=== PATIENT | male | born 1990 | race Caucasian/White ===

== ENCOUNTER 2017-10-28 10:48 | Emergency (ER) | payer OTHER | END 2017-10-28 12:00 | disposition home or self-care (01) | LOC: ER 12:00 | DX: J32.1 Chronic frontal sinusitis (principal); J32.0 Chronic maxillary sinusitis | CPT/HCPCS: 99283 ==

== ENCOUNTER 2019-10-24 03:08 | Emergency (ER) | payer OTHER ==
[~2019-10-24] VITALS: Ht 188 cm; Wt 108.9 kg
[2019-10-24 03:13] VITALS: BP 143/90
[2019-10-24] MEDS ORDERED: TRAM50TA PO (03:53)
[2019-10-24] MEDS ORDERED: AMOX500T PO (03:53)
--- NOTE | 2019-10-24 03:53 | PHYS DOC ---
Past Medical History Past Medical History: No Pertinent History Past Surgical History: Other Alcohol Use: Rarely Drug Use: None Adult General Chief Complaint Chief Complaint: SORE THROAT HPI HPI Patient is a 29 year old male with history of recurrent strep throat who presents with body aches, was sore throat painful swallowing. No dysphonia dysphagia, hoarseness or drooling. No cough, shortness breath or wheezing. No other acute symptoms or complaints.[] Review of Systems Review of Systems ROS as per HPI All other systems were reviewed and found to be within normal limits, except as documented in this note. Allergies Allergies Allergies Coded Allergies Type Severity Reaction Last Updated Verified No Known Drug Allergies 10/28/17 No Physical Exam Physical Exam Constitutional: Well developed, well nourished, no acute distress, non-toxic appearance. [] HENT: Normocephalic, atraumatic, bilateral external ears normal, oropharynx, mild pharyngeal erythema, no oral exudates, nose normal. [] Eyes: PERRLA, EOMI, conjunctiva normal, no discharge. [] Neck: Normal range of motion, no tenderness. Anterior cervical lymphadenopathy [] Cardiovascular:Heart rate regular rhythm, no murmur [] Lungs & Thorax: Bilateral breath sounds clear to auscultation. [] Abdomen: Bowel sounds normal, soft, no tenderness. [] Skin: Warm, dry, no erythema, no rash. [] Extremities: No tenderness, no cyanosis, no clubbing, ROM intact, no edema. [] Neurologic: Alert and oriented X 3, normal motor function, normal sensory function, no focal deficits noted. [] Psychologic: Affect normal, judgement normal, mood normal. [] Current Patient Data Vital Signs Vital Signs Date Time Temp Pulse Resp B/P (MAP) Pulse Ox O2 Delivery O2 Flow Rate FiO2 10/24/19 03:13 99.1 97 16 143/90 (107) 99 Room Air 99.1 EKG EKG [] Radiology/Procedures Radiology/Procedures [] Course & Med Decision Making Course & Med Decision Making Pertinent Labs and Imaging studies reviewed. (See chart for details) [History of recurrent strep throat. Will treat presumptively with PCP follow-up] Dragon Disclaimer Dragon Disclaimer This electronic medical record was generated, in whole or in part, using a voice recognition dictation system. Departure Departure Impression: Primary Impression: Acute pharyngitis Disposition: HOME, SELF-CARE Condition: STABLE Referrals: NO PCP (PCP) Patient Instructions: Viral and Bacterial Pharyngitis, [id number] Additional Instructions: Please take ibuprofen for pain and tramadol for additional relief a full course of antibiotics. Follow-up with PCP in 2-3 days if symptoms persist. Return to the ED if new or worsening symptoms Scripts Tramadol Hcl (TRAMADOL HCL) 50 Mg Tablet 50 MG PO Q6H PRN for PAIN for 3 Days, #15 TAB 0 Refills Prov: LILLIAM FORRESTER DO 10/24/19 Amoxicillin (AMOXICILLIN) 500 Mg Tablet 1 TAB PO BID, #20 TAB Prov: LILLIAM FORRESTER DO 10/24/19 LILLIAM FORRESTER DO Oct 24, 2019 03:53
== END 2019-10-24 04:07 | disposition home or self-care (01) ==
LOC: ER 03:08
DX: J02.9 Acute pharyngitis, unspecified (principal)
CPT/HCPCS: 99283